=== PATIENT | female | born 1980 | race Two or more races ===

== ENCOUNTER 2021-06-06 07:53 | Emergency (ER) | payer MEDICAID, OTHER ==
[~2021-06-06] VITALS: Ht 162.6 cm; Wt 90.7 kg
[2021-06-06] MEDS ORDERED: methylPREDNISolone SOD SUCC 125 MG/2 ML VL ONE (08:26)
[2021-06-06] MEDS ORDERED: SODIUM CHLORIDE 0.9% 1,000 ML IV ONE ×2 (08:30→09:15)
[2021-06-06] MEDS ORDERED: methylPREDNISolone SOD SUCC 125 MG/2 ML VL IV ONE (08:30)
[2021-06-06 09:17] LABS: Basophils # (auto) 0 10 ^3/uL (0-0.2); Basophils % (auto) 0.4 % (0.0-2.0); Eosinophils # (auto) 0 10 ^3/uL (0-0.8); Eosinophils % (auto) 0.3 % (0.0-7.0); Hematocrit 52.9 % (36.0-46.0); Hemoglobin 17.3 g/dL (12.2-16.2); Lymphocytes # (auto) 2.6 10 ^3/uL (0.4-5.4); Lymphocytes % (auto) 25.2 % (10.0-50.0); Mean Corpuscular Hemoglobin 30.7 pg (28.0-32.0); Mean Corpuscular Hgb Conc. 32.7 g/dL (32.0-36.0); Mean Corpuscular Volume 93.9 fL (80.0-100.0); Monocytes # (auto) 0.4 10 ^3/uL (0-1.3); Monocytes % (auto) 4.1 % (0.0-12.0); Neutrophils # (auto) 7.1 10 ^3/uL (1.6-8.6); Red Blood Cells 5.64 10^6/uL (4.0-5.20); Red Cell Distribution Width 13.3 % (11.8-14.3); White Blood Cell 10.2 10^3/uL (4.4-10.8)
[2021-06-06 09:36] LABS: Albumin 3.2 g/dL (3.4-5.0); Anion Gap 11 (5-15); Blood Urea Nitrogen 14 mg/dL (7-18); Calcium 8.3 mg/dL (8.5-10.1); Carbon Dioxide 20 mmol/L (21-32); Chloride 103 mmol/L (98-107); Potassium 4.1 mmol/L (3.5-5.1); Sodium 134 mmol/L (136-145)
[2021-06-06 09:41] LABS: Alanine Aminotransferase 31 U/L (13-56); Alkaline Phosphatase 128 U/L (45-117); Aspartate Aminotransferase 16 U/L (15-37); BUN/Creatinine Ratio 14.6; Bilirubin, Total 0.4 mg/dL (0.2-1.0); GFR African American 82 mL/min; GFR Non-African American 68 mL/min; Total Protein 6.5 g/dL (6.4-8.2)
[2021-06-06 09:45] LABS: Glucose 471 mg/dL (74-106)
[2021-06-06] MEDS ORDERED: InsuLIN REG 1unit/0.01ml Soln (100units/ml) IV ONE (10:00)
[2021-06-06 10:07] LABS: Urine Bacteria NONE SEEN /hpf (None Seen); Urine Blood Negative /uL (Negative); Urine Specific Gravity 1.042 (1.001-1.035); Urine WBC 59 /hpf (0 - 5)
[2021-06-06 12:04] VITALS: BP 110/70
== END 2021-06-06 12:06 | disposition home or self-care (01) ==
LOC: EDBD 07:53 → ER 07:53
DX: T78.40XA Allergy, unspecified, initial encounter (principal); N39.0 Urinary tract infection, site not specified; R73.9 Hyperglycemia, unspecified; Y92.89 Other specified places as the place of occurrence of the external cause
CPT/HCPCS: 36415; 80053; 81001; 82962; 84484; 85025; 96361; 96374; 96375; 99285; J1815; J2930; J7030